=== PATIENT | female | born 1965 | race Caucasian/White ===

== ENCOUNTER 2020-04-19 22:00 | Emergency (ER) | payer SELFPAY ==
[~2020-04-19] VITALS: Ht 172.7 cm; Wt 104.8 kg
[~2020-04-19 22:00] MED LIST: COL100 PO; IBUPROFEN600 MG PO; NOR10T PO
[2020-04-19 22:09] VITALS: Ht 172.7 cm; Wt 104.8 kg
[2020-04-19 23:34] LABS: BASOPHIL % 0.7 % (0-2); PLATELET COUNT 243 x10^3mcL (130-400); RED CELL DISTRIBUTION WIDTH 13.2 % (11.5-14.5)
[2020-04-20 00:11] LABS: CALCIUM 9.6 mg/dL (8.5-10.1); CARBON DIOXIDE 26.7 mmol/L (21-32); CHLORIDE SERUM 102 mmol/L (98-107); CREATININE SERUM 0.8 mg/dL (0.6-1.0); GFR1 > 60 mL/min; GLUCOSE SERUM 134 mg/dL (74-106); POTASSIUM SERUM 3.8 mmol/L (3.5-5.1); SODIUM SERUM 138 mmol/L (136-145)
[2020-04-20 00:16] LABS: ALBUMIN 3.7 g/dL (3.4-5.0); ALKALINE PHOSPHATASE 75 U/L (46-116); ALT/SGPT 143 U/L (14-59); AST/SGOT 90 U/L (15-37); BILIRUBIN TOTAL 0.5 mg/dL (0.20-1.00); TOTAL PROTEIN, SERUM 7.3 g/dL (6.4-8.2)
[2020-04-20 01:11] VITALS: BP 117/47
== END 2020-04-20 01:05 | disposition home or self-care (01) ==
LOC: ED 22:00
DX: R07.89 Other chest pain (principal); I10 Essential (primary) hypertension; R06.02 Shortness of breath; R20.2 Paresthesia of skin
CPT/HCPCS: Q0092